=== PATIENT | female | born 1965 | race Caucasian/White ===

== ENCOUNTER 2021-09-22 09:34 | Day surgery (SDC) | payer BC, OTHER ==
[2021-09-21 08:47] VITALS: BMI 29.7
[~2021-09-22 09:34] MED LIST: LACTATED RINGERS 1,000 ML IV SCH; LIDOCAINE 1% (10MG/ML) FOR IV START INTRADERMA PRN
[2021-09-22 10:15] VITALS: RESP 16; TEMP 97.8
[2021-09-22] MEDS ORDERED: LIDOCAINE 1% INJ 10MG/ML (20 ML MDV) ONE (10:52)
[2021-09-22] MEDS ORDERED: PROPOFOL 10 MG/ML 20 ML VIAL IV ONE (10:52)
--- NOTE | 2021-09-22 11:14 | P.PCN ---
Date of Procedure: 09/22/21 Procedure(s) Performed: BRIEF HISTORY: Patient is a 56-year-old pleasant female scheduled for an elective colonoscopy as a part of screening for colon cancer. PROCEDURE PERFORMED: Colonoscopy. PREOPERATIVE DIAGNOSIS: Screening for colon cancer. IV sedation per Anesthesia. PROCEDURE: After informed consent was obtained, the patient, was brought into the endoscopy unit. IV sedation was administered by Anesthesia under continuous monitoring. Digital rectal examination was normal. Initially the Olympus CF-160 flexible video colonoscope was then inserted in the rectum, gradually advanced into the cecum without any difficulty. Careful examination was performed as the scope was gradually being withdrawn. Ileocecal valve and the appendiceal orifice were visualized and appeared normal. Prep was fair. There was some sticky still noted in the right colon that was thoroughly irrigated.. Mucosa of the cecum, ascending colon, transverse colon, descending colon, sigmoid colon, and rectum appeared normal. Retroflexion was performed in the rectum and no lesions were seen. The patient tolerated the procedure well. IMPRESSION: Normal-appearing colon from rectum to cecum with no evidence of colorectal neoplasia . RECOMMENDATIONS: Findings of this examination were discussed with the patient as well as her family. She was advised to have a repeat screening colonoscopy in 10 years..
[2021-09-22 11:45] VITALS: BP 121/76; PULSE 70
== END 2021-09-22 12:08 | disposition home or self-care (01) ==
LOC: ORWHC2ENDO 09:34
PROVIDERS: ATTEND Internal Medicine Gastroenterology
DX: Z12.11 Encounter for screening for malignant neoplasm of colon (principal)
CPT/HCPCS: G0121; J2001; J2704

== ENCOUNTER → 2023-07-18 | Outpatient (CLI) | payer BC ==
--- NOTE | 2023-07-18 09:26 | CTL ---
EXAMINATION TYPE: CT Low Dose Lung DATE OF EXAM ORDERED: 07/18/2023 HISTORY: senior care tobacco use . Lung cancer screening CT DLP: 121.[address] CTDI: 2.7 mGy Automated exposure control for dose reduction was used. SCREENING VISIT: Baseline COMPARISON: None TECHNIQUE: Low dose computed tomography scan was performed through the chest at 1 mm thick sections a nd reconstructed images in multiple planes at 1 mm and [address] DIAGNOSTIC QUALITY: Satisfactory FINDINGS: LUNG NODULES: None. LUNGS: COPD: Severity: None Fibrosis: Severity: None Lymph nodes: None Other findings: None RIGHT PLEURAL SPACE: Effusion: None Calcification: None Thickening: None Pneumothorax: None LEFT PLEURAL SPACE: Effusion: None Calcification: None Thickening: None Pneumothorax: None HEART: Heart Size: Normal Coronary Calcification: Small Pericardial Effusion: None OTHER FINDINGS: Upper abdomen: None Bony thorax: None Supraclavicular region: None Other: None IMPRESSION: No significant pulmonary nodules. CT LUNG RAD AND CT CHEST RECOMMENDATION: Lung-Rad 1 Negative: Continue annual screening with LDCT in 12 months. S Modifier (other clinically significant findings): None
== END | disposition home or self-care (01) ==
LOC: RADCTMAIN 08:53
PROVIDERS: ATTEND Family Medicine
DX: Z12.2 Encounter for screening for malignant neoplasm of respiratory organs (principal); F17.210 Nicotine dependence, cigarettes, uncomplicated
CPT/HCPCS: 71271

== ENCOUNTER → 2023-07-31 | Outpatient (CLI) | payer BC ==
[2023-07-31 16:09] LABS: Basophils # (A) 0.06 X 10*3/uL (0.00-0.10); Basophils % (A) 0.7 %; Eosinophils # (A) 0.26 X 10*3/uL (0.04-0.35); Eosinophils % (A) 2.9 %; HCT 49.9 % (37.2-46.3); HGB 16.7 g/dL (12.0-15.0); Lymphocytes # (A) 2.74 X 10*3/uL (0.90-5.00); Lymphocytes % (A) 30.9 %; MCH 31.1 pg (27.0-32.0); MCHC 33.5 g/dL (32.0-37.0); MCV 92.9 FL (80.0-97.0); Mean Platelet Volume 11.8 FL (9.5-12.2); Monocytes % (A) 7.9 %; NRBC Per 100 WBC 0 X 10*3/uL (0.00-0.01); Neutrophils # (A) 5.08 X 10*3/uL (1.80-7.70); Neutrophils % (A) 57.4 %; Platelet Count 222 X 10*3/uL (140-440); RBC 5.37 X 10*6/uL (4.10-5.20); RDW 12.9 % (11.5-14.5); WBC 8.86 X 10*3/uL (4.50-10.00)
[2023-07-31 16:31] LABS: ALT 69 U/L (8-44); AST 53 U/L (13-35); Albumin 4.6 g/dL (3.8-4.9); Albumin/Globulin Ratio 1.53 Ratio (1.60-3.17); Alkaline Phosphatase 302 U/L (41-126); Blood Urea Nitrogen 14.5 mg/dL (9.0-27.0); Calcium 10.8 mg/dL (8.7-10.3); Carbon Dioxide 24.6 mmol/L (21.6-31.8); Chloride 102 mmol/L (96-109); Glucose 97 mg/dL (70-110); Iron 75 UG/DL (50-170); Potassium 4.3 mmol/L (3.5-5.5); Sodium 140 mmol/L (135-145); Total Bilirubin 0.5 mg/dL (0.3-1.2); Total Iron Binding Capacity 364 UG/DL (228-460); Total Protein 7.6 g/dL (6.2-8.2)
[2023-07-31 16:41] LABS: Hepatitis B Surface Antigen Nonreactive; Hepatitis C IgG Antibody Nonreactive
[2023-07-31 17:03] LABS: Ceruloplasmin 34.8 mg/dL (20.0-60.0)
[2023-07-31 17:11] LABS: Albumin 4.6 g/dL (3.8-4.9); Protein, Total 7.6 g/dL (6.2-8.2)
[2023-08-01 11:11] LABS: Smooth Muscle Antibody 29 UNITS (<20)
[2023-08-01 16:47] LABS: Gamma Globulin 1.25 g/dL (0.70-1.50)
== END | disposition home or self-care (01) ==
LOC: LABWHC1 09:10
PROVIDERS: ATTEND Internal Medicine Gastroenterology
DX: R74.8 Abnormal levels of other serum enzymes (principal)
CPT/HCPCS: 36415; 80053; 81596; 82103; 82390; 82728; 83516; 83540; 83550; 84165; 85025; 86038; 86803; 87340

== ENCOUNTER → 2023-07-31 | Outpatient (CLI) | payer BC ==
--- NOTE | 2023-08-01 11:29 | MM ---
Reason for Exam: Screening (asymptomatic). Baseline mammogram. Patient History: Menarche at age 12. Hysterectomy at age 37. Postmenopausal. Hormonal Contraceptives, from age 20 until age 28. Paternal aunt had breast cancer. Risk Values: Melinda 5 year model risk: 1.0%. NCI Lifetime model risk: 5.6%. Prior Study Comparison: Patient's first Mammogram. No prior studies available for comparison. Tissue Density: The breast tissue is heterogeneously dense. This may lower the sensitivity of mammography. Findings: Analyzed By CAD. Masses in the left breast at 10 cm from nipple measuring 10 mm and 4 summation of normal measuring 4 mm posterior nipple line on CC view. Slightly inferior on the MLO view involving the larger more posterior one. The smaller lesion not definitively visualized. There is no suspicious group of microcalcifications or new suspicious mass. Overall Assessment: Incomplete: need additional imaging evaluation, BI-RAD 0 Management: Diagnostic Breast Ultrasound of the left breast. [facility] will attempt to contact patient to return for supplemental views and ultrasound if indicated. Patient should continue monthly self-breast exams. A clinical breast exam by your physician is recommended on an annual basis. This exam should not preclude additional follow-up of suspicious palpable abnormalities. Note on Melinda scores and lifetime risk: 1. A Melinda score greater than 3% is considered moderate risk. If this is the case, consider specialist referral to assess eligibility for a risk reducing agent. 2. If overall lifetime risk for the development of breast cancer is 20% or higher, the patient may qualify for future screening with alternating mammogram and breast MRI. Electronically signed and approved by: Jese Giordano DO
== END | disposition home or self-care (01) ==
LOC: RADMAMWWP 08:50
PROVIDERS: ATTEND Family Medicine
DX: Z12.31 Encounter for screening mammogram for malignant neoplasm of breast (principal); Z80.3 Family history of malignant neoplasm of breast; Z78.0 Asymptomatic menopausal state
CPT/HCPCS: 77063; 77067

== ENCOUNTER → 2023-08-07 | Outpatient (CLI) | payer BC ==
--- NOTE | 2023-08-07 08:15 | US ---
EXAMINATION TYPE: US abdomen limited DATE OF EXAM: 08/07/2023 COMPARISON: NONE CLINICAL INDICATION: Female, 58 years old with history of R74.8 ABNORMAL LEVELS OF OTHER SERUM ENZYME S; Abnormal liver labs labs. No pain. TECHNIQUE: Multiple sonographic images of the right upper quadrant are obtained. FINDINGS: EXAM MEASUREMENTS: Liver Length: 16.1 cm Gallbladder Wall: 0.2 cm CBD: 0.5 cm Right Kidney: 9.5 x 4.4 x 4.1 cm Pancreas: wnl Liver: wnl Gallbladder: No stones or wall thickening visualized Evidence for sonographic Mcqueen's sign: neg CBD: wnl Right Kidney: Medial anechoic lesion at hilum = 1.0 x 1.1 cm IMPRESSION: No evidence for acute process.
== END | disposition home or self-care (01) ==
LOC: RADUSWWP 07:06
PROVIDERS: ATTEND Internal Medicine Gastroenterology
DX: R74.8 Abnormal levels of other serum enzymes (principal); R79.89 Other specified abnormal findings of blood chemistry
CPT/HCPCS: 76705

== ENCOUNTER → 2023-08-07 | Outpatient (CLI) | payer BC ==
--- NOTE | 2023-08-07 07:50 | USB ---
Reason for Exam: Additional evaluation requested from abnormal screening. Patient History: Menarche at age 12. Hysterectomy at age 37. Postmenopausal. Hormonal Contraceptives, from age 20 until age 28. Paternal aunt had breast cancer. Risk Values: Melinda 5 year model risk: 1.0%. NCI Lifetime model risk: 5.6%. Technique: Method: Targeted. Prior Study Comparison: 07/31/2023 Bilateral MG 3D screening mammo w/cad, [facility]. Findings: The axilla of the left breast and the retroareolar of the left breast were scanned. Technique utilized:US breast workup limited LT Image; Ultrasound imaging of: Area of concern, retroareolar region and axilla. No evidence for organizing fluid collection or solid mass. Anechoic lesions in the retroareolar region measuring up to 5 mm. No other findings visualized. No finding to definitively correlate with findings on mammography at the posterior depth of the left breast. Asymmetry in the right breast at posterior depth on screening mammography slightly lateral is also identified and can be followed up at the time finding likely represents a lymph node. Overall Assessment: Probably benign, BI-RAD 3 Management: Diagnostic Mammogram of both breasts in 6 months. A clinical breast exam by your physician is recommended on an annual basis and results should be correlated with mammographic findings. This exam should not preclude additional follow-up of suspicious palpable abnormalities. Results were given to the patient verbally at the time of exam. Electronically signed and approved by: Jese Giordano DO
== END | disposition home or self-care (01) ==
LOC: RADUSWWP 07:04
PROVIDERS: ATTEND Family Medicine
DX: R92.8 Other abnormal and inconclusive findings on diagnostic imaging of breast (principal); Z80.3 Family history of malignant neoplasm of breast; Z78.0 Asymptomatic menopausal state

== ENCOUNTER 2023-09-10 08:46 | Day surgery (SDC) | payer BC ==
[2023-09-10] MEDS ORDERED: ALPRAZolam 0.5 MG TAB PO PRN (09:22)
[2023-09-10 09:56] LABS: Mean Platelet Volume 8.9; Platelet Count 212 k/uL (150-450)
[2023-09-10 10:03] LABS: INR 0.9 (<1.2); Prothrombin Time 10.5 sec (10.0-12.5)
[2023-09-10 10:34] VITALS: TEMP 98.1
[2023-09-10] MEDS: HYDROmorphone 0.5 MG/0.5 ML SYRINGE IVP PRN (10:40)
[2023-09-10] MEDS: ALPRAZolam 0.25 MG TAB PO STA (10:40)
[2023-09-10] MEDS ORDERED: HYDROcodone/APAP 5-325MG 1 EACH TAB PO PRN (11:10)
--- NOTE | 2023-09-10 11:14 | US ---
EXAMINATION TYPE: US biopsy liver DATE OF EXAM: 09/10/2023 10:56 AM CLINICAL INDICATION:Female, 58 years old with history of R74.8 ABNORMAL LEVELS OF OTHER SERUM ENZYMES ; COMPARISON: Ultrasound 08/07/2023. ATTENDING: Dr. Jese Giordano TECHNIQUE: Ultrasound guided percutaneous biopsy of the right hepatic lobe using coaxial method. FINDINGS: The procedure was explained to the patient including risks of bleeding, bruising, infection, damage t o nearby organs and need for additional therapy including potential surgery. All questions were answ ered and consent was obtained. The previous studies were reviewed. The patient was placed on the ultrasound bed in the supine posit ion. The overlying skin was marked and prepped using sterile method. Timeout was taken per protocol. Following administration of local anesthesia a 20 gauge coaxial needle was introduced on the hepatic lobe. The coaxial needle tip was directed into the right hepatic lobe. 2 x 20 gauge coaxial biopsie s were then obtained. Touch prep of portions of the specimen were reviewed by pathology department personnel during the procedure to evaluate for cellularity of the samples. The biopsy samples were s ent in appropriate containers for lab analysis. Following the procedure the needle was removed and sterile dressing was applied to the percutaneous site. Post biopsy imaging demonstrated no evidence of hemorrhage. Patient was taken for postprocedure observation in stable condition. IMPRESSIONS: Status post percutaneous random ultrasound-guided liver biopsy of the right hepatic lobe. Pathology r esults pending.
[2023-09-10 12:22] VITALS: RESP 16
[2023-09-10 15:21] VITALS: BP 116/57; PULSE 67
== END 2023-09-10 15:03 | disposition home or self-care (01) ==
LOC: RADPROMAIN 08:46
PROVIDERS: ATTEND Internal Medicine Gastroenterology
DX: K83.1 Obstruction of bile duct (principal)
CPT/HCPCS: 85049; 85610; 88313; 88307; 36415; 47000; 76942; J1170